=== PATIENT | female | born 1995 | race Caucasian/White ===

== ENCOUNTER 2020-05-12 17:50 | Inpatient (IN) | payer MEDICAID ==
[~2020-05-12] VITALS: Ht 160 cm; Wt 70.3 kg
[2020-05-12] MEDS ORDERED: OXYCODONE HCL/ACETAMINOPHEN 5/325MG TABLET PO PRN (18:30)
[2020-05-12] MEDS ORDERED: NALOXONE HCL 0.4 MG/ML 1ML VIAL IV ONE (18:30)
[2020-05-12] MEDS ORDERED: NALOXONE HCL 0.4 MG/ML 1ML VIAL IV SCH (18:45)
[2020-05-12 19:30] VITALS: BP 113/64
[2020-05-12] MEDS: OXYCODONE HCL 5MG TABLET PO PRN (19:48)
[2020-05-12 20:00] VITALS: BP 113/64
[2020-05-12] MEDS ORDERED: POLYETHYLENE GLYCOL 3350 (17GM) 1 DOSE PACK PO PRN (21:00)
[2020-05-12] MEDS: SENNOSIDES 8.6MG TABLET PO SCH (21:00)
[2020-05-12] MEDS ORDERED: ACET-2708 PO (22:08)
[2020-05-12] MEDS: BACITRACIN 15GM TUBE TOP SCH (22:13)
[2020-05-12] MEDS: ENOXAPARIN 30MG/0.3ML SYR SUBCUT SCH (23:02)
[2020-05-13] MEDS: OXYCODONE HCL 5MG TABLET PO PRN ×6 (00:12→22:58)
[2020-05-13] MEDS: BACITRACIN 15GM TUBE TOP SCH ×3 (06:23→22:52)
[2020-05-13 07:24] LABS: HEMATOCRIT 22.7 % (36.0-48.0); HEMOGLOBIN 7.9 g/dL (12.0-16.0); MEAN CORPUSCULAR HEMOGLOBIN 34.5 pg (28.0-32.0); MEAN CORPUSCULAR VOLUME 99.1 fL (81.0-99.0); PLATELET 435 x1000/uL (130-400); RED BLOOD CELL COUNT 2.29 mill/uL (4.2-5.4); RED CELL DISTRIBUTION WIDTH 17.5 % (11.6-14.6)
[2020-05-13 08:00] VITALS: BP 98/49
[2020-05-13 08:21] LABS: CHLORIDE 105 mEq/L (98-107)
[2020-05-13] MEDS: LIDOCAINE 5% PATCH TOP SCH (08:36)
[2020-05-13] MEDS: PRENATAL VIT/FE FUMARATE/FA TABLET PO SCH (08:37)
[2020-05-13] MEDS: ENOXAPARIN 30MG/0.3ML SYR SUBCUT SCH ×2 (08:37→20:24)
[2020-05-13] MEDS: FOLIC ACID 1MG TABLET PO SCH (08:37)
[2020-05-13] MEDS: DOCUSATE SODIUM 100MG CAPSULE PO SCH ×2 (08:37→16:37)
[2020-05-13] MEDS: FERROUS SULFATE 325MG TABLET PO SCH ×3 (08:38→16:37)
[2020-05-13] MEDS ORDERED: ENOXAPARIN 30MG/0.3ML SYR SUBCUT SCH (09:00)
[2020-05-13 12:00] VITALS: BP 103/62
[2020-05-13 16:00] VITALS: BP 108/63
[2020-05-13 20:00] VITALS: BP 107/55
[2020-05-13] MEDS: SENNOSIDES 8.6MG TABLET PO SCH (20:24)
[2020-05-14] VITALS: BP 110/61
[2020-05-14] MEDS: OXYCODONE HCL 5MG TABLET PO PRN ×5 (03:17→20:13)
[2020-05-14 04:00] VITALS: BP 102/63
[2020-05-14] MEDS: BACITRACIN 15GM TUBE TOP SCH ×3 (06:11→21:11)
[2020-05-14 07:48] VITALS: BP 106/56
[2020-05-14] MEDS: DOCUSATE SODIUM 100MG CAPSULE PO SCH ×2 (08:59→17:14)
[2020-05-14] MEDS: FOLIC ACID 1MG TABLET PO SCH (08:59)
[2020-05-14] MEDS: ENOXAPARIN 30MG/0.3ML SYR SUBCUT SCH ×2 (09:00→20:14)
[2020-05-14] MEDS: FERROUS SULFATE 325MG TABLET PO SCH ×3 (09:00→17:14)
[2020-05-14] MEDS: PRENATAL VIT/FE FUMARATE/FA TABLET PO SCH (09:00)
[2020-05-14] MEDS: LIDOCAINE 5% PATCH TOP SCH (09:01)
[2020-05-14 11:06] VITALS: BP 100/58
[2020-05-14 15:15] VITALS: BP 116/69
[2020-05-14] MEDS ORDERED: ZOLPIDEM TARTRATE 5MG TABLET PO PRN (17:15)
[2020-05-14] MEDS: MAGNESIUM HYDROXIDE 400MG/5ML 30ML UDC PO PRN (18:46)
[2020-05-14 19:39] VITALS: BP 100/54
[2020-05-14] MEDS: SENNOSIDES 8.6MG TABLET PO SCH (20:21)
[2020-05-15] VITALS: BP 104/56
[2020-05-15] MEDS: OXYCODONE HCL 5MG TABLET PO PRN ×4 (02:31→17:17)
[2020-05-15 04:00] VITALS: BP 102/58
[2020-05-15] MEDS: BACITRACIN 15GM TUBE TOP SCH ×3 (06:46→21:32)
[2020-05-15 07:36] VITALS: BP 94/59
[2020-05-15] MEDS: PRENATAL VIT/FE FUMARATE/FA TABLET PO SCH (08:24)
[2020-05-15] MEDS: FERROUS SULFATE 325MG TABLET PO SCH ×3 (08:24→16:10)
[2020-05-15] MEDS: FOLIC ACID 1MG TABLET PO SCH (08:24)
[2020-05-15] MEDS: DOCUSATE SODIUM 100MG CAPSULE PO SCH ×2 (08:24→16:10)
[2020-05-15] MEDS: LIDOCAINE 5% PATCH TOP SCH (08:27)
[2020-05-15] MEDS: ENOXAPARIN 30MG/0.3ML SYR SUBCUT SCH ×2 (08:29→21:32)
[2020-05-15 12:26] VITALS: BP 110/63
[2020-05-15 16:33] VITALS: BP 106/61
[2020-05-15 20:00] VITALS: BP 101/60
[2020-05-15] MEDS: MAGNESIUM HYDROXIDE 400MG/5ML 30ML UDC PO PRN (21:32)
[2020-05-15] MEDS: SENNOSIDES 8.6MG TABLET PO SCH (21:32)
[2020-05-16] MEDS: OXYCODONE HCL 5MG TABLET PO PRN ×5 (00:03→20:14)
[2020-05-16] MEDS: ACETAMINOPHEN 500MG TABLET PO PRN (04:36)
[2020-05-16] MEDS: BACITRACIN 15GM TUBE TOP SCH ×3 (06:25→21:42)
[2020-05-16 07:58] VITALS: BP 129/88
[2020-05-16 08:00] VITALS: BP 97/58
[2020-05-16] MEDS: ENOXAPARIN 30MG/0.3ML SYR SUBCUT SCH ×2 (08:29→20:13)
[2020-05-16] MEDS: DOCUSATE SODIUM 100MG CAPSULE PO SCH ×2 (08:29→16:43)
[2020-05-16] MEDS: FOLIC ACID 1MG TABLET PO SCH (08:29)
[2020-05-16] MEDS: FERROUS SULFATE 325MG TABLET PO SCH ×3 (08:29→16:43)
[2020-05-16] MEDS: LIDOCAINE 5% PATCH TOP SCH (08:32)
[2020-05-16] MEDS: PRENATAL VIT/FE FUMARATE/FA TABLET PO SCH (08:33)
[2020-05-16] MEDS ORDERED: LIDOCAINE HCL/EPINEPHRINE 1%-EPI 1:100,000 20 ML VIAL INFIL SCH (12:00)
[2020-05-16 20:00] VITALS: BP 104/57
[2020-05-16] MEDS: SENNOSIDES 8.6MG TABLET PO SCH (20:14)
[2020-05-17] MEDS: OXYCODONE HCL 5MG TABLET PO PRN ×4 (02:32→18:59)
[2020-05-17] MEDS: BACITRACIN 15GM TUBE TOP SCH ×2 (06:30→14:49)
[2020-05-17 08:00] VITALS: BP 95/53
[2020-05-17] MEDS: LIDOCAINE 5% PATCH TOP SCH (08:48)
[2020-05-17] MEDS: ENOXAPARIN 30MG/0.3ML SYR SUBCUT SCH ×2 (08:48→21:48)
[2020-05-17] MEDS: PRENATAL VIT/FE FUMARATE/FA TABLET PO SCH (08:49)
[2020-05-17] MEDS: FOLIC ACID 1MG TABLET PO SCH (08:49)
[2020-05-17] MEDS: FERROUS SULFATE 325MG TABLET PO SCH ×3 (08:49→16:28)
[2020-05-17] MEDS: DOCUSATE SODIUM 100MG CAPSULE PO SCH ×2 (08:49→16:28)
[2020-05-17 10:50] VITALS: BP 115/59
[2020-05-17] MEDS ORDERED: BISACODYL 5MG TABLET PO PRN (16:15)
[2020-05-17 18:57] VITALS: BP 107/67
[2020-05-17] MEDS: SENNOSIDES 8.6MG TABLET PO SCH (21:48)
[2020-05-18 02:15] VITALS: BP 103/54
[2020-05-18] MEDS: OXYCODONE HCL 5MG TABLET PO PRN ×4 (02:23→20:57)
[2020-05-18] MEDS: BACITRACIN 15GM TUBE TOP SCH ×4 (02:28→22:29)
[2020-05-18 07:58] VITALS: BP 97/56
[2020-05-18] MEDS: FERROUS SULFATE 325MG TABLET PO SCH ×3 (08:19→17:30)
[2020-05-18] MEDS: DOCUSATE SODIUM 100MG CAPSULE PO SCH ×2 (08:19→17:30)
[2020-05-18] MEDS: FOLIC ACID 1MG TABLET PO SCH (08:19)
[2020-05-18] MEDS: PRENATAL VIT/FE FUMARATE/FA TABLET PO SCH (08:19)
[2020-05-18] MEDS: LIDOCAINE 5% PATCH TOP SCH (08:20)
[2020-05-18] MEDS: ENOXAPARIN 30MG/0.3ML SYR SUBCUT SCH ×2 (08:25→20:56)
[2020-05-18] MEDS ORDERED: TRAMADOL 50MG TABLET PO PRN (13:30)
[2020-05-18] MEDS ORDERED: LACTULOSE 20G/30ML UDC PO PRN (13:45)
[2020-05-18 20:00] VITALS: BP 112/63
[2020-05-18] MEDS ORDERED: DIPHENHYDRAMINE 50MG CAPSULE PO PRN (20:00)
[2020-05-18] MEDS: SENNOSIDES 8.6MG TABLET PO SCH (20:55)
[2020-05-19] MEDS: BACITRACIN 15GM TUBE TOP SCH ×3 (05:34→21:09)
[2020-05-19 07:51] VITALS: BP 92/50
[2020-05-19] MEDS: LIDOCAINE 5% PATCH TOP SCH (08:20)
[2020-05-19] MEDS: FERROUS SULFATE 325MG TABLET PO SCH ×3 (08:20→16:38)
[2020-05-19] MEDS: PRENATAL VIT/FE FUMARATE/FA TABLET PO SCH (08:20)
[2020-05-19] MEDS: DOCUSATE SODIUM 100MG CAPSULE PO SCH ×2 (08:20→16:38)
[2020-05-19] MEDS: ENOXAPARIN 30MG/0.3ML SYR SUBCUT SCH ×2 (08:20→20:08)
[2020-05-19] MEDS: FOLIC ACID 1MG TABLET PO SCH (08:21)
[2020-05-19] MEDS: OXYCODONE HCL 5MG TABLET PO PRN ×2 (10:26→20:09)
[2020-05-19] MEDS: ACETAMINOPHEN 500MG TABLET PO PRN (14:59)
[2020-05-19 20:00] VITALS: BP 106/60
[2020-05-19] MEDS: SENNOSIDES 8.6MG TABLET PO SCH (20:08)
[2020-05-20] VITALS (7 sets, daily range): BP systolic 90–118; BP diastolic 47–69
[2020-05-20] MEDS: BACITRACIN 15GM TUBE TOP SCH ×3 (06:28→21:06)
[2020-05-20] MEDS: LIDOCAINE 5% PATCH TOP SCH (08:52)
[2020-05-20] MEDS: PRENATAL VIT/FE FUMARATE/FA TABLET PO SCH (08:53)
[2020-05-20] MEDS: ENOXAPARIN 30MG/0.3ML SYR SUBCUT SCH ×2 (08:53→21:04)
[2020-05-20] MEDS: FOLIC ACID 1MG TABLET PO SCH (08:53)
[2020-05-20] MEDS: FERROUS SULFATE 325MG TABLET PO SCH ×3 (08:53→16:08)
[2020-05-20] MEDS: DOCUSATE SODIUM 100MG CAPSULE PO SCH ×2 (08:53→16:08)
[2020-05-20] MEDS: OXYCODONE HCL 5MG TABLET PO PRN ×3 (08:55→18:49)
[2020-05-20] MEDS: SENNOSIDES 8.6MG TABLET PO SCH (21:03)
[2020-05-21] MEDS: OXYCODONE HCL 5MG TABLET PO PRN ×3 (03:42→13:10)
[2020-05-21] MEDS: BACITRACIN 15GM TUBE TOP SCH ×2 (06:48→13:20)
[2020-05-21 07:23] LABS: BASOPHILS % 0.2 % (0.0-2.0); EOSINOPHILS % 1.1 % (0.0-5.0); HEMATOCRIT. 24.7 % (36.0-48.0); HEMOGLOBIN. 8.2 g/dL (12.0-16.0); MEAN CORPUSCULAR HEMOGLOBIN 33.8 pg (28.0-32.0); MEAN CORPUSCULAR VOLUME 101.3 fL (81.0-99.0); MEAN PLATELET VOLUME 7.2 fl (7.4-10.4); MONOCYTES % 7.5 % (2.0-8.0); NEUTROPHILS % 72.2 % (40.0-76.0); PLATELET 279 x1000/uL (130-400); RED BLOOD CELL COUNT 2.44 mill/uL (4.2-5.4); RED CELL DISTRIBUTION WIDTH 17.6 % (11.6-14.6)
[2020-05-21 07:31] LABS: CHLORIDE 107 mEq/L (98-107)
[2020-05-21 08:09] VITALS: BP 107/53
[2020-05-21] MEDS: DOCUSATE SODIUM 100MG CAPSULE PO SCH (08:43)
[2020-05-21] MEDS: PRENATAL VIT/FE FUMARATE/FA TABLET PO SCH (08:43)
[2020-05-21] MEDS: FERROUS SULFATE 325MG TABLET PO SCH ×2 (08:44→12:22)
[2020-05-21] MEDS: FOLIC ACID 1MG TABLET PO SCH (08:44)
[2020-05-21] MEDS: ENOXAPARIN 30MG/0.3ML SYR SUBCUT SCH (08:44)
[2020-05-21] MEDS: LIDOCAINE 5% PATCH TOP SCH (08:44)
[2020-05-21 14:52] VITALS: BP 100/68
== END 2020-05-21 15:25 | disposition home health service (06) | DRG 861 ==
PROVIDERS: ADMIT Psychiatry & Neurology Neurology; ATTEND Internal Medicine
DX: R53.81 Other malaise (principal); O99.352 Diseases of the nervous system complicating pregnancy, second trimester; O9A.212 Injury, poisoning and certain other consequences of external causes complicating pregnancy, second trimester; S06.0X9A Concussion with loss of consciousness of unspecified duration, initial encounter; S22.39XA Fracture of one rib, unspecified side, initial encounter for closed fracture; S32.029A Unspecified fracture of second lumbar vertebra, initial encounter for closed fracture; S32.039A Unspecified fracture of third lumbar vertebra, initial encounter for closed fracture; S32.592A Other specified fracture of left pubis, initial encounter for closed fracture; S87.82XA Crushing injury of left lower leg, initial encounter; K59.00 Constipation, unspecified; D64.9 Anemia, unspecified; E43 Unspecified severe protein-calorie malnutrition; G93.40 Encephalopathy, unspecified; O25.12 Malnutrition in pregnancy, second trimester; O99.012 Anemia complicating pregnancy, second trimester; F12.90 Cannabis use, unspecified, uncomplicated; F15.10 Other stimulant abuse, uncomplicated; F17.210 Nicotine dependence, cigarettes, uncomplicated; V89.2XXA Person injured in unspecified motor-vehicle accident, traffic, initial encounter
CPT/HCPCS: 36415; 76805; 80048; 80053; 82040; 84134; 85025; 85027; 92523; 92610; 93970; 97110; 97116; 97163; 97166; 97530; 97535; J1650; J3490; L1830

== ENCOUNTER 2020-05-24 19:41 | Emergency (ER) | payer MEDICAID ==
[~2020-05-24] VITALS: Ht 160 cm; Wt 73.0 kg
[~2020-05-24 19:41] MED LIST: ACET-2708 PO
[2020-05-25 00:27] VITALS: BP 121/67
== END 2020-05-25 00:42 | disposition home or self-care (01) ==
LOC: ER 19:41
DX: O26.892 Other specified pregnancy related conditions, second trimester (principal); I87.2 Venous insufficiency (chronic) (peripheral); D64.9 Anemia, unspecified; Z98.890 Other specified postprocedural states; Z3A.26 26 weeks gestation of pregnancy
CPT/HCPCS: 93970; 99284

== ENCOUNTER 2024-11-25 17:17 | Emergency (ER) | payer MEDICAID ==
[~2024-11-25] VITALS: Ht 157.5 cm; Wt 60.0 kg
[2024-11-25 17:28] VITALS: O2SAT 100
[2024-11-25] MEDS ORDERED: LIDOCAINE HCL 1% 20ML VIAL INFIL ONE (17:45)
[2024-11-25] MEDS ORDERED: BACITRACIN ZINC OINT UDPKT TOP ONE (17:45)
[2024-11-25 18:10] VITALS: BP 122/90; PULSE 89; RESP 12; TEMP 36.8; O2SAT 99
== END 2024-11-25 18:48 | disposition left against medical advice (07) ==
LOC: ER 17:17
DX: S91.011A Laceration without foreign body, right ankle, initial encounter (principal); Z79.899 Other long term (current) drug therapy; Z98.890 Other specified postprocedural states; W26.9XXA Contact with unspecified sharp object(s), initial encounter; Y93.89 Activity, other specified; Y92.89 Other specified places as the place of occurrence of the external cause; Y99.8 Other external cause status
CPT/HCPCS: 99281

== ENCOUNTER 2025-05-28 18:47 | Emergency (ER) | payer MEDICAID ==
[~2025-05-28] VITALS: Ht 162.6 cm; Wt 66.0 kg
[2025-05-28 18:59] VITALS: O2SAT 97
[2025-05-28 20:02] LABS: CLARITY URINE CLOUDY (CLEAR); GLUCOSE URINE NEGATIVE (NEGATIVE); KETONES URINE TRACE (NEGATIVE); LEUKOCYTE ESTERASE URINE 2+ (NEGATIVE); NITRITE URINE NEGATIVE (NEGATIVE); OCCULT BLOOD URINE 2+ (NEGATIVE); PH URINE 5.5 (4.5-8.0); PROTEIN URINE 3+ (NEGATIVE); SPECIFIC GRAVITY URINE 1.028 (1.005-1.030); UROBILINOGEN URINE 1.0 E.U./dL (0.2-1.0)
[2025-05-28 20:14] LABS: COLOR URINE YELLOW (YELLOW)
[2025-05-28 20:15] LABS: WBC URINE TNTC /hpf (0-2)
[2025-05-28 20:16] LABS: BACTERIA URINE TRACE; SQUAMOUS EPITHELIAL CELL URINE 1+ /lpf (RARE/1+)
[2025-05-28 20:31] LABS: MUCUS URINE 1+ /lpf (< = 2+)
[2025-05-28] MEDS ORDERED: NITR-87 MT (20:55)
[2025-05-28] MEDS ORDERED: IBUP-1455 MT (20:55)
[2025-05-28] MEDS: KETOROLAC 30MG/ML VIAL IM ONE (21:12)
[2025-05-28 21:19] VITALS: BP 120/79; PULSE 107; RESP 15; TEMP 36.9; O2SAT 100
== END 2025-05-28 21:20 | disposition home or self-care (01) ==
LOC: ER 18:54
DX: N39.0 Urinary tract infection, site not specified (principal); D64.9 Anemia, unspecified; Z98.890 Other specified postprocedural states
CPT/HCPCS: 81003; 81025; 87086; 87077; 96372; 99283; J1885; Z7610